=== PATIENT | male | born 1990 | race Caucasian/White ===

== ENCOUNTER 2018-01-05 10:04 | Emergency (ER) | payer SELFPAY ==
[~2018-01-05] VITALS: Ht 177.8 cm; Wt 70.0 kg
[2018-01-05 10:45] VITALS: BP 135/75; PULSE 86; RESP 18; TEMP 98.1; O2SAT 98
[2018-01-05] MEDS ORDERED: CLIN300C5 PO (11:24)
--- NOTE | 2018-01-05 11:27 | PD ---
HPI Chief Complaint: Oral / Dental Pain or Problem Time Seen by Provider: 11:01 Travel History International Travel<30 days: No Contact w/Intl Traveler<30days: No Traveled to known affect area: No History of Present Illness HPI 27-year-old male presents to the emergency room for evaluation of right lower dental abscess for the past 4 days. Patient states he woke up with pain and swelling about 4 days ago. Pain is severe, worsened when he touches it or eats. No alleviating factors. He took 2 Advil without relief in symptoms. He has had associated nausea but no fever, chills, or vomiting. No chronic medical conditions or daily medications. He does not have a dentist in the area. [facility] Social History Tobacco Use: Yes Allergies-Medications (Allergen,Severity, Reaction): Coded Allergies: No Known Allergies (Verified Allergy, Unknown, 01/05/18) Reported Meds & Prescriptions Reported Meds & Active Scripts Active Clindamycin (Clindamycin HCl) 300 Mg Cap 300 Mg PO Q6H 10 Days Review of Systems Except as stated in HPI: all other systems reviewed are Neg Physical Exam Narrative GENERAL: Well-nourished, well-developed male in no acute distress. Afebrile. Ambulatory. SKIN: Focused skin assessment warm/dry. HEAD: Normocephalic. EYES: No scleral icterus. No injection or drainage. NECK: Supple, trachea midline. No JVD or lymphadenopathy. DENTAL: Mild decay throughout. No loose or chipped teeth. No malocclusion. There is obvious abscess to the right lower dental region. It is extremely tender to palpation. No submental, submandibular, or buccal induration. Mild right sided buccal edema. CARDIOVASCULAR: Regular rate and rhythm without murmurs, gallops, or rubs. RESPIRATORY: Breath sounds equal bilaterally. No accessory muscle use. Data Data Last Documented VS Vital Signs Date Time Temp Pulse Resp B/P (MAP) Pulse Ox O2 Delivery O2 Flow Rate FiO2 01/05/18 10:45 98.1 86 18 135/75 (95) 98 Orders Orders Ed Discharge Order (01/05/18 11:23) Clindamycin (Cleocin) (01/05/18 11:30) Ibuprofen (Motrin) (01/05/18 11:30) MDM Medical Decision Making Medical Screen Exam Complete: Yes Emergency Medical Condition: Yes Medical Record Reviewed: Yes Differential Diagnosis Dental abscess, dentalgia, gingivitis Narrative Course 27-year-old male presents to the emergency room for evaluation of right lower dental pain and swelling for the past 4 days. Patient is afebrile and well- appearing in the emergency room. He does have right-sided facial swelling but no induration. No evidence of Vaughn's angina. There is an obvious abscess below the right wisdom tooth. A 22 gauge needle was inserted into the abscess and drawn back with expression of purulent drainage. Patient tolerated procedure well. He was given first dose of antibiotics in the emergency room and discharged with prescription for the same. Told to follow-up with a dentist return for worsening symptoms. He understands and agrees to plan. Diagnosis Primary Impression: Dental abscess Referrals: Dentist Additional Instructions: Rest and drink plenty of fluids. Clindamycin as directed, until gone. Follow-up with a dentist. Return to the emergency room for worsening symptoms. Med/Other Pt SpecificInfo: Prescription(s) given Scripts Clindamycin (Clindamycin) 300 Mg Cap 300 MG PO Q6H for Infection for 10 Days, #40 CAP 0 Refills Prov: Sheridan Soares MD 01/05/18 Disposition: 01 DISCHARGE HOME Condition: Stable Veronique Garner Jan 05, 2018 11:27
[2018-01-05] MEDS ORDERED: CLINDAMYCIN 150 MG CAP PO ONE (11:30)
[2018-01-05] MEDS ORDERED: IBUPROFEN 800 MG TAB PO ONE (11:30)
== END 2018-01-05 12:00 | disposition home or self-care (01) ==
LOC: NEPK 10:04
DX: K04.7 Periapical abscess without sinus (principal); Z72.0 Tobacco use
CPT/HCPCS: 99283